=== PATIENT | male | born 1960 | race Caucasian/White ===

== ENCOUNTER 2016-11-27 12:37 | Emergency (ER) | payer OTHER ==
[~2016-11-27] VITALS: Ht 177.8 cm; Wt 70.0 kg
[~2016-11-27 12:37] MED LIST: ADVAI500I PO; BACT800T5 PO; CEPH500T PO; CLON1TAB PO; DUONI NEB; IPRAAER IN; MORP100T40 PO; MORP1INJ45 PO; PERC10TA27 PO; PRED20 PO; ZOLO50TA PO
[2016-11-27 12:42] VITALS: BP 120/72; PULSE 72; RESP 22; TEMP 97.8; O2SAT 90
== END 2016-11-27 12:55 | disposition left against medical advice (07) ==
LOC: NED 12:37
DX: S61.012A Laceration without foreign body of left thumb without damage to nail, initial encounter (principal); S61.211A Laceration without foreign body of left index finger without damage to nail, initial encounter; W29.8XXA Contact with other powered hand tools and household machinery, initial encounter; Z53.21 Procedure and treatment not carried out due to patient leaving prior to being seen by health care provider
CPT/HCPCS: 99281

== ENCOUNTER 2016-11-28 11:34 | Emergency (ER) | payer OTHER ==
[~2016-11-28] VITALS: Ht 177.8 cm; Wt 66.0 kg
[2016-11-28 11:59] VITALS: BP 127/79; PULSE 80; RESP 18; TEMP 98; O2SAT 96
== END 2016-11-28 13:58 | disposition left against medical advice (07) ==
LOC: NED 11:34
DX: S69.90XA Unspecified injury of unspecified wrist, hand and finger(s), initial encounter (principal); X58.XXXA Exposure to other specified factors, initial encounter
CPT/HCPCS: 99281